=== PATIENT | female | born 1960 | race Caucasian/White ===

== ENCOUNTER 2017-05-14 08:33 | Emergency (ER) | payer OTHER ==
[~2017-05-14] VITALS: Ht 172.7 cm; Wt 72.0 kg
[~2017-05-14 08:33] MED LIST: ACYC400T PO; BUPR1TAB74 PO
[2017-05-14 08:34] VITALS: BP 126/85; PULSE 87; RESP 14; TEMP 98.1; O2SAT 99
[2017-05-14] MEDS ORDERED: [UNRECOGNIZED DRUG - OTHER] (09:20)
[2017-05-14] MEDS ORDERED: DUEXIS PO (09:22)
--- NOTE | 2017-05-14 09:47 | PD ---
HPI Chief Complaint: Back/ Neck Pain or Injury Time Seen by Provider: 09:22 Travel History International Travel<30 days: No Contact w/Intl Traveler<30days: No Traveled to known affect area: No History of Present Illness HPI c/o left flank pain, 01/14, nonrad, severe, acute onset since 2am this morning, so severe that she "blacked out", was witness and did not describe tonic clonic type of activity and patient returned to normal within 20-30 seconds. PFSH Past Medical History ?: Not Allergies-Medications (Allergen,Severity, Reaction): Coded Allergies: No Known Allergies (Unverified Adverse Reaction, Unknown, 05/14/17) Reported Meds & Prescriptions Reported Meds & Active Scripts Active Bupropion HCl ER 12 HR (Bupropion HCl) 200 Mg Tab 200 Mg PO Q12HR Acyclovir 400 Mg Tab 400 Mg PO TID Reported [duexis] 800 Mg PO DIRECTED Review of Systems Except as stated in HPI: all other systems reviewed are Neg General / Constitutional: No: Fever Eyes: No: Visual changes HENT: No: Headaches Cardiovascular: No: Chest Pain or Discomfort Respiratory: No: Shortness of Breath Gastrointestinal: No: Abdominal Pain Genitourinary: Positive: Urgency, Frequency, Flank Pain Musculoskeletal: No: Pain Skin: No Rash Neurologic: No: Weakness Psychiatric: No: Depression Endocrine: No: Polydipsia Hematologic/Lymphatic: No: Easy Bruising Physical Exam Narrative GENERAL: SKIN: Warm and dry. HEAD: Atraumatic. Normocephalic. EYES: Pupils equal and round. No scleral icterus. No injection or drainage. ENT: No nasal bleeding or discharge. Mucous membranes pink and moist. NECK: Trachea midline. No JVD. CARDIOVASCULAR: Regular rate and rhythm. RESPIRATORY: No accessory muscle use. Clear to auscultation. Breath sounds equal bilaterally. GASTROINTESTINAL: Abdomen soft, non-tender, nondistended. MUSCULOSKELETAL: Extremities without clubbing, cyanosis, or edema. No obvious deformities. left psoas sign on exam NEUROLOGICAL: Awake and alert. No obvious cranial nerve deficits. Motor grossly within normal limits. Five out of 5 muscle strength in the arms and legs. Normal speech. PSYCHIATRIC: Appropriate mood and affect; insight and judgment normal. Data Data Last Documented VS Vital Signs Date Time Temp Pulse Resp B/P (MAP) Pulse Ox O2 Delivery O2 Flow Rate FiO2 1/8/18 10:29 100 Room Air 05/14/17 08:34 98.1 87 14 Orders Orders Electrocardiogram (05/14/17 09:22) Complete Blood Count With Diff (05/14/17 09:22) Comprehensive Metabolic Panel (05/14/17 09:22) Troponin I (05/14/17 09:22) Prothrombin Time / Inr (Pt) (05/14/17:22) Act Partial Throm Time (Ptt) (05/14/17:22) Lipase (05/14/17:22) Urinalysis - C+S If Indicated (05/14/17:22) Thyroid Stimulating Hormone (05/14/17:22) Ct Brain W/O Iv Contrast(Rout) (05/14/17:22) Ct Abd/Pel W/O Iv Contrast (05/14/17:22) Iv Access Insert/Monitor (05/14/17 09:22) Ecg Monitoring (05/14/17:22) Oximetry (05/14/17 09:22) Morphine Inj (Morphine Inj) (05/14/17 10:00) Urine Culture (05/14/17 09:58) Ceftriaxone Inj (Rocephin Inj) (05/14/17 11:15) Labs Laboratory Tests Test 05/14/17 09:58 05/14/17 10:55 White Blood Count 8.0 TH/MM3 Red Blood Count 3.85 MIL/MM3 Hemoglobin 13.0 GM/DL Hematocrit 37.9 % Mean Corpuscular Volume 98.3 FL Mean Corpuscular Hemoglobin 33.8 PG Mean Corpuscular Hemoglobin Concent 34.4 % Red Cell Distribution Width 13.4 % Platelet Count 309 TH/MM3 Mean Platelet Volume 8.4 FL Neutrophils (%) (Auto) 67.8 % Lymphocytes (%) (Auto) 18.7 % Monocytes (%) (Auto) 10.8 % Eosinophils (%) (Auto) 2.1 % Basophils (%) (Auto) 0.6 % Neutrophils # (Auto) 5.4 TH/MM3 Lymphocytes # (Auto) 1.5 TH/MM3 Monocytes # (Auto) 0.9 TH/MM3 Eosinophils # (Auto) 0.2 TH/MM3 Basophils # (Auto) 0.0 TH/MM3 CBC Comment DIFF FINAL Differential Comment Prothrombin Time 10.0 SEC Prothromb Time International Ratio 1.0 RATIO Activated Partial Thromboplast Time 26.4 SEC Urine Color YELLOW Urine Turbidity HAZY Urine pH 5.5 Urine Specific [place] 1.024 Urine Protein TRACE mg/dL Urine Glucose (UA) NEG mg/dL Urine Ketones NEG mg/dL Urine Occult Blood SMALL Urine Nitrite POS Urine Bilirubin NEG Urine Urobilinogen LESS THAN 2.0 MG/DL Urine Leukocyte Esterase LARGE Urine RBC 3 /hpf Urine WBC 27 /hpf Urine Squamous Epithelial Cells 1 /hpf Urine Bacteria MANY /hpf Urine Hyaline Casts 1 /lpf Urine Mucus FEW /lpf Microscopic Urinalysis Comment CULTURE INDICATED Blood Urea Nitrogen 20 MG/DL Creatinine 0.68 MG/DL Random Glucose 91 MG/DL Total Protein 7.0 GM/DL Albumin 3.4 GM/DL Calcium Level 8.3 MG/DL Alkaline Phosphatase 59 U/L Aspartate Amino Transf (AST/SGOT) 21 U/L Alanine Aminotransferase (ALT/SGPT) 32 U/L Total Bilirubin 0.3 MG/DL Sodium Level 140 MEQ/L Potassium Level 4.2 MEQ/L Chloride Level 107 MEQ/L Carbon Dioxide Level 27.6 MEQ/L Anion Gap 5 MEQ/L Estimat Glomerular Filtration Rate 89 ML/MIN Troponin I LESS THAN 0.02 NG/ML Lipase 121 U/L Thyroid Stimulating Hormone 3rd Gen 2.430 uIU/ML MDM Medical Decision Making Medical Screen Exam Complete: Yes Emergency Medical Condition: Yes Medical Record Reviewed: Yes Interpretation(s) nsr 68, irbbb, Differential Diagnosis psoas injury v internal abscess v divertic v colitis v kidney stone Narrative Course CT NEG FOR ANY SURGICAL FINDINGS PARTICULARLY NO ABSCESS/DIVERTIC/COLITIS OR KIDNEY STONE. UA C/W UTI Diagnosis Primary Impression: ASCENDING CYSTITIS Patient Instructions: General Instructions, Urinary Tract Infection in Women ( ED) Scripts Ketorolac (Ketorolac) 10 Mg Tab 10 MG PO Q6HR Y for PAIN, #14 TAB 0 Refills Prov: Daniel Ramachandran MD 05/14/17 Nitrofurantoin Monohydrate Macrocrystals (Macrobid) 100 Mg Capsule 100 MG PO BID for Infection, #20 CAP 0 Refills Prov: Daniel Ramachandran MD 05/14/17 Disposition: 01 DISCHARGE HOME Condition: Stable Daniel Ramachandran MD May 14, 2017 09:47
[2017-05-14] MEDS ORDERED: MORPHINE SULFATE 2 MG/ML INJ IV PUSH ONE (10:00)
--- NOTE | 2017-05-14 10:05 | RADRPT ---
EXAM DATE/TIME: 05/14/2017 09:40 [facility] COMPARISON: No previous studies available for comparison. INDICATIONS : Left flank pain ORAL CONTRAST: No oral contrast ingested. RADIATION DOSE: 6.97 CTDIvol (mGy) MEDICAL HISTORY : None SURGICAL HISTORY : section. ENCOUNTER: Initial ACUITY: 2 days PAIN SCALE: 6/10 LOCATION: Left flank TECHNIQUE: Volumetric scanning of the abdomen and pelvis was performed. Using automated exposure control and ad justment of the mA and/or kV according to patient size, radiation dose was kept as low as reasonably achievable to obtain optimal diagnostic quality images. DICOM format image data is available electro nically for review and comparison. FINDINGS: Breast implants noted. Lung base clear. Liver, spleen, pancreas unremarkable The right kidney is normal The left kidney is normal There no calcifications on expected course of either ureter There is no intracranial adenopathy 2 tiny calcifications are seen in the pelvis, when the right normal left. These are both probably ph leboliths. I do not see perinephric straining to suggest obstruction Pelvic Contents otherwise normal CONCLUSION: I don't see evidence for renal stone or obstruction the left. Tiny calcification in the pelvis no phlebolith I do not see an etiology for flank pain. Lack of contrast makes detection of polyps is difficult Abhishek Scott MD FACR on May 14, 2017 at 10:00 Board Certified Radiologist. This report was verified electronically.
--- NOTE | 2017-05-14 10:13 | RADRPT ---
EXAM DATE/TIME: 05/14/2017 09:36 [facility] COMPARISON: No previous studies available for comparison. INDICATIONS : Syncopal episode RADIATION DOSE: 34.42 CTDIvol (mGy) MEDICAL HISTORY : None SURGICAL HISTORY : section. ENCOUNTER: Initial ACUITY: 1 day PAIN SCALE: 0/10 LOCATION: cranial TECHNIQUE: Multiple contiguous axial images were obtained of the head. Using automated exposure control and adj ustment of the mA and/or kV according to patient size, radiation dose was kept as low as reasonably a chievable to obtain optimal diagnostic quality images. DICOM format image data is available electro nically for review and comparison. FINDINGS: CEREBRUM: The ventricles are normal for age. No evidence of midline shift, mass lesion, hemorrhage or acute in farction. No extra-axial fluid collections are seen. POSTERIOR FOSSA: The cerebellum and brainstem are intact. The 4th ventricle is midline. The cerebellopontine angle i s unremarkable. EXTRACRANIAL: The visualized portion of the orbits is intact. SKULL: The calvaria is intact. No evidence of skull fracture. CONCLUSION: 1. No acute intracranial abnormality. Fantasma Carolina MD on May 14, 2017 at 10:10 Board Certified Radiologist. This report was verified electronically.
[2017-05-14 10:22] LABS: AUTOMATED NEUTROPHIL # 5.4 TH/MM3 (1.8-7.7); BASOPHIL % 0.6 % (0.0-2.0); EOSINOPHIL # 0.2 TH/MM3 (0-0.4); EOSINOPHIL % 2.1 % (0.0-4.0); HEMATOCRIT 37.9 % (35.0-46.0); LYMPH % 18.7 % (9.0-44.0); LYMPHOCYTE # 1.5 TH/MM3 (1.0-4.8); MEAN CELL VOLUME 98.3 FL (80.0-100.0); MEAN CORPUSCULAR HEMOGLOBIN 33.8 PG (27.0-34.0); MEAN CORPUSCULAR HGB CONC 34.4 % (32.0-36.0); MEAN PLATELET VOLUME 8.4 FL (7.0-11.0); MONO % 10.8 % (0.0-8.0); MONOCYTE # 0.9 TH/MM3 (0-0.9); NEUT % 67.8 % (16.0-70.0); PLATELET COUNT 309 TH/MM3 (150-450); RED BLOOD COUNT 3.85 MIL/MM3 (4.00-5.30); RED CELL DISTRIBUTION WIDTH 13.4 % (11.6-17.2)
[2017-05-14 10:26] LABS: BACTERIA, URINE MANY /hpf; BILIRUBIN, URINE NEG (NEG); BLOOD, URINE SMALL (NEG); GLUCOSE,URINE NEG (NEG); HYALINE CAST, URINE 1 /lpf (RARE); KETONE, URINE NEG (NEG); MUCUS URINE FEW /lpf (OCC); NITRITE,URINE POS (NEG); PH, URINE 5.5 (5.0-8.5); SQUAMOUS EPITHELIAL CELL URINE 1 /hpf (0-5); URINE COLOR YELLOW (YELLW/STRAW); URINE LEUKOCYTE ESTERASE LARGE (NEG)
[2017-05-14 10:29] VITALS: O2SAT 100
[2017-05-14] MEDS ORDERED: cefTRIAXone INJ 1,000 MG in SODIUM CHLORIDE 0.9% INJ 100 ML IV ONE (11:15)
[2017-05-14 11:37] LABS: ALBUMIN 3.4 GM/DL (3.4-5.0); ALT (GPT) 32 U/L (10-53); BLOOD UREA NITROGEN 20 MG/DL (7-18); CALCIUM 8.3 MG/DL (8.5-10.1); CHLORIDE 107 MEQ/L (98-107); CREATININE 0.68 MG/DL (0.50-1.00); GLOMERULAR FILTRATION RATE 89 ML/MIN (>89); GLUCOSE,RANDOM 91 MG/DL (74-106); SODIUM (NA) 140 MEQ/L (136-145)
[2017-05-14 11:41] LABS: AST (GOT) 21 U/L (15-37); BICARBONATE 27.6 MEQ/L (21.0-32.0); LIPASE 121 U/L (73-393)
[2017-05-14 11:47] LABS: ALKALINE PHOSPHATASE 59 U/L (45-117)
[2017-05-14 12:05] LABS: TOTAL BILIRUBIN ADULT 0.3 MG/DL (0.2-1.0); TROPONIN I LESS THAN 0.02 NG/ML (0.02-0.05)
[2017-05-14] MEDS ORDERED: MACR100C2 PO (12:41)
[2017-05-14] MEDS ORDERED: KETO10 PO (12:41)
--- NOTE | 2017-05-14 18:16 | EKG ---
Date Performed: 05/14/2017 Time Performed: 09:57:49 PTAGE: 57 years EKG: Sinus rhythm INCOMPLETE RIGHT BUNDLE BRANCH BLOCK BORDERLINE ECG NO PREVIOUS TRACING DOCTOR: Oliva Jalloh Interpretating Date/Time 05/14/2017 18:14:49
== END 2017-05-14 13:15 | disposition home or self-care (01) ==
LOC: NEPD 08:33
DX: N30.90 Cystitis, unspecified without hematuria (principal); B96.20 Unspecified Escherichia coli [E. coli] as the cause of diseases classified elsewhere; I45.10 Unspecified right bundle-branch block
CPT/HCPCS: 70450; 74176; 80053; 81001; 83690; 84443; 84484; 85025; 85610; 85730; 87077; 87086; 87186; 93005; 96365; 96366; 96375; 99285; J0696; J2270

== ENCOUNTER 2017-05-23 15:30 | Emergency (ER) | payer OTHER ==
[~2017-05-23] VITALS: Ht 172.7 cm; Wt 70.9 kg
[~2017-05-23 15:30] MED LIST changes: +DUEXIS PO; +KETO10 PO; +MACR100C2 PO
[2017-05-23 15:32] VITALS: BP 148/67; PULSE 82; RESP 12; TEMP 97.7; O2SAT 100
[2017-05-23] MEDS ORDERED: ONDANSETRON HCL 4 MG/2 ML VIAL IV PUSH ONE (16:00)
[2017-05-23 16:45] LABS: AUTOMATED NEUTROPHIL # 4.8 TH/MM3 (1.8-7.7); BASOPHIL % 0.6 % (0.0-2.0); EOSINOPHIL # 0.1 TH/MM3 (0-0.4); EOSINOPHIL % 1.1 % (0.0-4.0); HEMOGLOBIN 12.5 GM/DL (11.6-15.3); LYMPH % 23.7 % (9.0-44.0); LYMPHOCYTE # 1.7 TH/MM3 (1.0-4.8); MEAN CELL VOLUME 97.6 FL (80.0-100.0); MEAN CORPUSCULAR HEMOGLOBIN 32.9 PG (27.0-34.0); MEAN CORPUSCULAR HGB CONC 33.7 % (32.0-36.0); MONOCYTE # 0.5 TH/MM3 (0-0.9); NEUT % 67.6 % (16.0-70.0); PLATELET COUNT 281 TH/MM3 (150-450); RED BLOOD COUNT 3.79 MIL/MM3 (4.00-5.30)
[2017-05-23 17:02] LABS: ALKALINE PHOSPHATASE 74 U/L (45-117); TOTAL BILIRUBIN ADULT 0.2 MG/DL (0.2-1.0); TOTAL PROTEIN 7.6 GM/DL (6.4-8.2)
[2017-05-23 17:04] LABS: BACTERIA, URINE FEW /hpf; BILIRUBIN, URINE NEG (NEG); BLOOD, URINE TRACE (NEG); GLUCOSE,URINE NEG (NEG); KETONE, URINE NEG (NEG); MUCUS URINE FEW /lpf (OCC); NITRITE,URINE NEG (NEG); PH, URINE 5.5 (5.0-8.5); RENAL EPITHELIAL CELLS 1 /hpf; SQUAMOUS EPITHELIAL CELL URINE 2 /hpf (0-5); URINE COLOR YELLOW (YELLW/STRAW); URINE LEUKOCYTE ESTERASE LARGE (NEG)
[2017-05-23 17:15] LABS: ALBUMIN 3.7 GM/DL (3.4-5.0); ALT (GPT) 56 U/L (10-53); AST (GOT) 31 U/L (15-37); BICARBONATE 32.5 MEQ/L (21.0-32.0); BLOOD UREA NITROGEN 25 MG/DL (7-18); CHLORIDE 103 MEQ/L (98-107); CREATININE 1.18 MG/DL (0.50-1.00); GLOMERULAR FILTRATION RATE 47 ML/MIN (>89); GLUCOSE,RANDOM 96 MG/DL (74-106); SODIUM (NA) 138 MEQ/L (136-145)
--- NOTE | 2017-05-23 17:21 | PD ---
HPI Chief Complaint: Flank/Kidney Pain Time Seen by Provider: 17:10 Travel History International Travel<30 days: No Contact w/Intl Traveler<30days: No Traveled to known affect area: No History of Present Illness HPI 57-year-old female here for evaluation of left flank pain. The patient was seen in the emergency department on 05/14/17 for the same and was diagnosed with a UTI and started on Macrobid. UA grew out Escherichia coli that was pansensitive. Patient reports that her pain improved, however returned 2 days ago and worsened yesterday and today. Pain is described as sharp, moderate, nonradiating, worse with movements, constant. No trauma. No urinary or bowel incontinence or retention. No fevers. Mild dysuria. PFSH Past Medical History Depression: Yes Past Surgical History Section: Yes Other Surgery: Yes (breast) Social History Alcohol Use: Yes Tobacco Use: No Substance Use: No Allergies-Medications (Allergen,Severity, Reaction): Coded Allergies: No Known Allergies (Verified Adverse Reaction, Unknown, 05/22/17) Reported Meds & Prescriptions Reported Meds & Active Scripts Active Ketorolac (Ketorolac Tromethamine) 10 Mg Tab 10 Mg PO Q6HR PRN Macrobid (Nitrofurantoin Monohydrate Macrocrystals) 100 Mg Capsule 100 Mg PO BID Bupropion HCl ER 12 HR (Bupropion HCl) 200 Mg Tab 200 Mg PO Q12HR Acyclovir 400 Mg Tab 400 Mg PO TID Reported [duexis] 800 Mg PO DIRECTED Review of Systems Except as stated in HPI: all other systems reviewed are Neg Physical Exam Narrative GENERAL: Well-developed, well-nourished, comfortable, no apparent distress. SKIN: Focused skin assessment warm/dry. No rash. HEAD: Atraumatic. Normocephalic. EYES: Pupils equal and round. No scleral icterus. No injection or drainage. ENT: Mucous membranes pink and moist. NECK: Trachea midline. No JVD. CARDIOVASCULAR: Regular rate and rhythm. No murmur appreciated. RESPIRATORY: No accessory muscle use. Clear to auscultation. Breath sounds equal bilaterally. GASTROINTESTINAL: Abdomen soft, non-tender, nondistended. MUSCULOSKELETAL: No obvious deformities. No clubbing. No cyanosis. No edema. No midline vertebral step-off or tenderness. No CVA tenderness. Mild left SI joint tenderness. NEUROLOGICAL: Awake and alert. No obvious cranial nerve deficits. Motor grossly within normal limits. Normal speech. PSYCHIATRIC: Appropriate mood and affect; insight and judgment normal. Data Data Last Documented VS Vital Signs Date Time Temp Pulse Resp B/P (MAP) Pulse Ox O2 Delivery O2 Flow Rate FiO2 05/23/17 15:32 97.7 82 12 148/67 (94) 100 Orders Orders Complete Blood Count With Diff (05/23/17 15:52) Comprehensive Metabolic Panel (05/23/17 15:52) Urinalysis - C+S If Indicated (05/23/17 15:52) Ondansetron Inj (Zofran Inj) (05/23/17 16:00) Urine Culture (05/23/17 16:12) Ketorolac Inj (Toradol Inj) (05/23/17 17:30) Ceftriaxone Inj (Rocephin Inj) (05/23/17 17:30) Ketorolac Inj (Toradol Inj) (05/23/17 17:30) Sodium Chlor 0.9% 1000 Ml Inj (Ns 1000 M (05/23/17 17:30) Ct Abd/Pel W Iv Contrast(Rout) (05/23/17 17:28) Iohexol 350 Inj (Omnipaque 350 Inj) (05/23/17 18:02) Labs Laboratory Tests Test 05/23/17 16:12 05/23/17 16:20 Urine Color YELLOW Urine Turbidity CLEAR Urine pH 5.5 Urine Specific [place] 1.018 Urine Protein NEG mg/dL Urine Glucose (UA) NEG mg/dL Urine Ketones NEG mg/dL Urine Occult Blood TRACE Urine Nitrite NEG Urine Bilirubin NEG Urine Urobilinogen LESS THAN 2.0 MG/DL Urine Leukocyte Esterase LARGE Urine RBC 2 /hpf Urine WBC 19 /hpf Urine Squamous Epithelial Cells 2 /hpf Urine Renal Epithelial Cells 1 /hpf Urine Bacteria FEW /hpf Urine Mucus FEW /lpf Microscopic Urinalysis Comment CULTURE INDICATED White Blood Count 7.0 TH/MM3 Red Blood Count 3.79 MIL/MM3 Hemoglobin 12.5 GM/DL Hematocrit 37.0 % Mean Corpuscular Volume 97.6 FL Mean Corpuscular Hemoglobin 32.9 PG Mean Corpuscular Hemoglobin Concent 33.7 % Red Cell Distribution Width 13.0 % Platelet Count 281 TH/MM3 Mean Platelet Volume 8.0 FL Neutrophils (%) (Auto) 67.6 % Lymphocytes (%) (Auto) 23.7 % Monocytes (%) (Auto) 7.0 % Eosinophils (%) (Auto) 1.1 % Basophils (%) (Auto) 0.6 % Neutrophils # (Auto) 4.8 TH/MM3 Lymphocytes # (Auto) 1.7 TH/MM3 Monocytes # (Auto) 0.5 TH/MM3 Eosinophils # (Auto) 0.1 TH/MM3 Basophils # (Auto) 0.0 TH/MM3 CBC Comment DIFF FINAL Differential Comment Blood Urea Nitrogen 25 MG/DL Creatinine 1.18 MG/DL Random Glucose 96 MG/DL Total Protein 7.6 GM/DL Albumin 3.7 GM/DL Calcium Level 9.0 MG/DL Alkaline Phosphatase 74 U/L Aspartate Amino Transf (AST/SGOT) 31 U/L Alanine Aminotransferase (ALT/SGPT) 56 U/L Total Bilirubin 0.2 MG/DL Sodium Level 138 MEQ/L Potassium Level 4.4 MEQ/L Chloride Level 103 MEQ/L Carbon Dioxide Level 32.5 MEQ/L Anion Gap 3 MEQ/L Estimat Glomerular Filtration Rate 47 ML/MIN [facility] Medical Decision Making Medical Screen Exam Complete: Yes Emergency Medical Condition: Yes Medical Record Reviewed: Yes Differential Diagnosis Pyelonephritis, nephrolithiasis, ureterolithiasis, musculoskeletal pain, cauda equina syndrome/conus medullaris syndrome unlikely Narrative Course Vital signs show heart rate 82, blood pressure 148/67, pulse ox 100% on room air , tympanic temp of 97.7F. CBC is unremarkable. CMP is remarkable for BUN 25, creatinine 1.18, GFR 47 which is slightly worse than it was a week ago. UA: Trace occult blood, large site esterase, 19 wbc's, few bacteria, few mucus, culture indicated. CT abdomen pelvis: Normal exam. The patient was made aware of all findings per she was given a dose of IV Rocephin. She is resting comfortably. She tells me that occasionally the left flank/lower back pain radiates down her posterior left leg. She may have sciatica. There are no red flags for low back pain. She still has a UTI and may have pyelonephritis as well. She has been on Macrobid for the last 10 days. Plan is to switch this to ceftin. She was advised to follow-up with her primary care physician this week. She was informed on when to return to the emergency department. She verbalizes understanding and agreement with plan. Diagnosis Primary Impression: UTI (urinary tract infection) Qualified Codes: N10 - Acute pyelonephritis Additional Impression: Left flank pain Referrals: Primary Care Physician 3 days Additional Instructions: Follow-up with your primary care physician this week. Take antibody as prescribed. Return to the emergency department for worsening symptoms or any other concerns. Scripts Tramadol (Tramadol) 50 Mg Tab 50 MG PO Q6H Y for PAIN, #15 TAB 0 Refills Prov: Yonatan Ortiz MD 05/23/17 Cefuroxime (Ceftin) 250 Mg Tab 500 MG PO BID for 7 Days, #28 TAB Prov: Yonatan Ortiz MD 05/23/17 Disposition: 01 DISCHARGE HOME Condition: Stable Yonatan Ortiz MD May 23, 2017 17:21
[2017-05-23] MEDS ORDERED: SODIUM CHLOR 0.9% 1000 ML INJ 1,000 ML IV ONE (17:30)
[2017-05-23] MEDS ORDERED: KETOROLAC TROMETHAMINE 30 MG/ML (IVP) VIAL IV PUSH ONE ×2 (17:30)
[2017-05-23] MEDS ORDERED: cefTRIAXone INJ 1,000 MG in SODIUM CHLORIDE 0.9% INJ 100 ML IV ONE (17:30)
[2017-05-23] MEDS ORDERED: IOHEXOL 350 MG/ML 10 ML VIAL (for RAD DIAG) IVCONTRAST ONE (18:02)
--- NOTE | 2017-05-23 18:11 | RADRPT ---
EXAM DATE/TIME: 05/23/2017 17:40 [facility] COMPARISON: CT ABDOMEN & PELVIS W/O CONTRAST, May 14, 2017, 9:40. INDICATIONS : Left back/flank pain with history of UTI IV CONTRAST: 94 cc Omnipaque 350 (iohexol) IV ORAL CONTRAST: No oral contrast ingested. RADIATION DOSE: 6.86 CTDIvol (mGy) MEDICAL HISTORY : None SURGICAL HISTORY : section. ENCOUNTER: Initial ACUITY: 1 week PAIN SCALE: 5/10 LOCATION: Left flank TECHNIQUE: Volumetric scanning of the abdomen and pelvis was performed. Using automated exposure control and ad justment of the mA and/or kV according to patient size, radiation dose was kept as low as reasonably achievable to obtain optimal diagnostic quality images. DICOM format image data is available electro nically for review and comparison. FINDINGS: LOWER LUNGS: The visualized lower lungs are clear. LIVER: Homogeneous density without lesion. There is no dilation of the biliary tree. No calcified gallston es. SPLEEN: Normal size without lesion. PANCREAS: Within normal limits. KIDNEYS: Normal in size and shape. There is no mass, stone or hydronephrosis. ADRENAL GLANDS: Within normal limits. VASCULAR: There is no aortic aneurysm. BOWEL/MESENTERY: The stomach, small bowel, and colon demonstrate no acute abnormality. There is no free intraperitone al air or fluid. ABDOMINAL WALL: Within normal limits. RETROPERITONEUM: There is no lymphadenopathy. BLADDER: No wall thickening or mass. REPRODUCTIVE: Within normal limits. INGUINAL: There is no lymphadenopathy or hernia. MUSCULOSKELETAL: Within normal limits for patient age. CONCLUSION: Normal examination. Levy Dominguez Jr., MD on May 23, 2017 at 18:06 Board Certified Radiologist. This report was verified electronically.
[2017-05-23] MEDS ORDERED: CEFU1TAB18 PO (18:37)
[2017-05-23] MEDS ORDERED: TRAM50TA PO (18:37)
== END 2017-05-23 18:56 | disposition home or self-care (01) ==
LOC: NEPD 15:30
DX: N10 Acute pyelonephritis (principal); R10.9 Unspecified abdominal pain; B96.20 Unspecified Escherichia coli [E. coli] as the cause of diseases classified elsewhere; F32.9 Major depressive disorder, single episode, unspecified
CPT/HCPCS: 74177; 80053; 81001; 85025; 87086; 96365; 96375; 99285; J0696; J1885; J7030; Q9967